=== PATIENT | male | born 1985 | race Caucasian/White ===

== ENCOUNTER 2017-05-22 19:15 | Emergency (ER) | payer BC, OTHER ==
[~2017-05-22] VITALS: Ht 182.9 cm; Wt 81.7 kg
--- NOTE | ~2017-05-22 | EKG ---
[place] [address] [place] [address] ELECTROCARDIOGRAM REPORT Name: KAYE RODRIGUEZ Room #: DEP FLEX Claire#: [id number] Admission: 05/22/17 Attend Phys: Discharge: 05/22/17 Date of : 87 Report #: [id number] THIS REPORT FOR: //name// [facility] ED Test Date: 2017-05-22 Test Time: 19:38:49 Pat Name: KAYE RODRIGUEZ Department: Room: Gender: Picker Packer: MAGALYS : 1985 Requested By: Rob Peters Order Number: [id number] MD: Travon Healy Measurements Intervals [place] Rate: 84 P: 70 MA: 163 QRS: 57 QRSD: 114 T: 57 QT: 385 QTc: 456 Interpretive Statements Sinus rhythm Incomplete right bundle branch block No previous ECG available for comparison Electronically Signed On 05-24-2017 8:47:07 PROGRAMMING ENGINEER by Travon Healy [email or web address] <ELECTRONICALLY SIGNED> By: Travon Healy MD, [facility] 05/24/17 [id number] 37 Travon Healy MD, FACC /EPI
[2017-05-22 20:03] LABS: ABSOLUTE NEUTROPHILS 3.1 thou/uL (1.4-8.2); BASOPHILS 0.5 % (0.0-2.0); EOSINOPHILS 1.1 % (0.0-3.0); HEMATOCRIT 41.6 % (42.0-52.0); HEMOGLOBIN 14.4 gm/dL (14.0-18.0); LYMPHOCYTES 32.7 % (24.0-44.0); MCH 31.1 pg (26.0-34.0); MCHC 34.6 g/dL (28.0-37.0); MONOCYTES 5.9 % (1.0-8.0); PLATELET COUNT 137 thou/uL (150-400); POLYS 59.8 % (36.0-66.0); RBC 4.62 mil/uL (4.50-6.00); RDW 12.3 % (10.5-14.5); WBC 5.2 thou/uL (4.0-11.0)
[2017-05-22] MEDS ORDERED: LISINOPRIL20 MG PO (20:09)
[2017-05-22 20:10] LABS: ANION GAP 12 mmol/L (7-16); BUN 16 mg/dL (7-18); CHLORIDE 100 mmol/L (98-107); CO2 25 mmol/L (21-32); CREATININE 1.2 mg/dL (0.7-1.3); GLUCOSE 202 mg/dL (74-106); POTASSIUM 3.1 mmol/L (3.5-5.1); SODIUM 137 mmol/L (136-145)
[2017-05-22 20:15] LABS: TROPONIN-I < 0.04 ng/mL (<0.06)
== END 2017-05-22 21:10 | disposition home or self-care (01) ==
LOC: ER 19:15
PROVIDERS: Physician Assistant
DX: R07.89 Other chest pain (principal); E87.6 Hypokalemia; T43.625A Adverse effect of amphetamines, initial encounter; Y92.9 Unspecified place or not applicable; I10 Essential (primary) hypertension; F17.210 Nicotine dependence, cigarettes, uncomplicated